=== PATIENT | female | born 1990 | race Caucasian/White ===

== ENCOUNTER 2025-01-13 01:56 | Emergency (ER) | payer BC ==
[~2025-01-13] VITALS: Ht 170.2 cm; Wt 142.9 kg
[2025-01-13 02:26] VITALS: O2SAT 96
[2025-01-13] MEDS ORDERED: PHEN-705 PO (02:54)
[2025-01-13] MEDS ORDERED: DOXY100C5 PO (02:54)
[2025-01-13] MEDS ORDERED: DOXYCYCLINE HYCLATE 100 MG TABLET ONE (03:03)
[2025-01-13] MEDS ORDERED: PHENAZOPYRIDINE HCL 100 MG TABLET ONE (03:03)
[2025-01-13] MEDS: PHENAZOPYRIDINE HCL 100 MG TABLET PO ONE (03:06)
[2025-01-13] MEDS: DOXYCYCLINE HYCLATE 100 MG TABLET PO ONE (03:06)
[2025-01-13 03:12] LABS: *BILIRUBIN,URIN NEGATIVE (NEGATIVE); *CLARITY,URINE CLEAR (CLEAR); *COLOR,URINE YELLOW (YELLOW); *KETONES,URINE NEGATIVE (NEGATIVE); *PROTEIN,URINE NEGATIVE (NEGATIVE); *UROBILINOGEN,URINE 0.2 E.U./dl (NORMAL); LEUKOCYTE ESTERASE ,URINE NEGATIVE (NEGATIVE); NITRITE, URINE POSITIVE (NEGATIVE); PH,URINE 5.5 (5.0-8.0); UGLUCOSE 2+ (NEGATIVE)
[2025-01-13 03:14] LABS: *BLOOD, URINE TRACE (NEGATIVE)
[2025-01-13 03:15] LABS: *URINE HCG, QUAL NEGATIVE (NEGATIVE)
[2025-01-13 03:29] LABS: BACTERIA,URINE MODERATE /HPF (NONE SEEN); RBC,URINE 0-3 /HPF (0-3); SQUAMOUS EPITHELIAL CELL,UR MODERATE /HPF (NONE SEEN); WBC,URINE 0-3 /HPF (0-3)
[2025-01-14 19:10] LABS: *CHLAMYDIA NAA Negative (Negative); *GC NAA Negative (Negative); *TRIC.VAG. NAA Negative (Negative)
== END 2025-01-13 03:10 | disposition home or self-care (01) ==
LOC: ER 01:56
DX: N39.0 Urinary tract infection, site not specified (principal); F17.200 Nicotine dependence, unspecified, uncomplicated
CPT/HCPCS: 84703; 87086; 87491; A4606; A4663

== ENCOUNTER 2025-06-09 23:41 | Emergency (ER) | payer BC ==
[~2025-06-09] VITALS: Ht 170.2 cm; Wt 154.2 kg
[~2025-06-09 23:41] MED LIST: DOXY100C5 PO; PHEN-705 PO
[2025-06-09 23:44] VITALS: BP 147/108
[2025-06-10] MEDS ORDERED: CIPR7.5D RIGHT EAR (00:06)
[2025-06-10 00:16] VITALS: BP 147/108; TEMP 98; O2SAT 97
== END 2025-06-10 00:16 | disposition home or self-care (01) ==
LOC: ER 23:55
DX: H60.91 Unspecified otitis externa, right ear (principal); R03.0 Elevated blood-pressure reading, without diagnosis of hypertension; F17.200 Nicotine dependence, unspecified, uncomplicated; Z88.7 Allergy status to serum and vaccine
CPT/HCPCS: A4606; A4663